=== PATIENT | female | born 1935 | race Caucasian/White ===

== ENCOUNTER 2020-07-10 00:14 | Inpatient (IN) | payer MEDICARE, OTHER ==
[~2020-07-10] VITALS: Ht 160 cm; Wt 47.2 kg
[~2020-07-10 00:14] MED LIST: AMOX TR-K CLV1 EAC4 PO; CEFUROXIME500 MG PO; CIPRO500 MG PO; MEGACE TAB 40 M40 MG PO; MULTIVITAMINS1 EAC1 PO; TYLENOL 8 HOUR650 MG PO; VITAMIN D33000 UNIT PO
[2020-07-10 01:33] LABS: HEMOGLOBIN 8.8 gm/dl (12.3-15.3); RED BLOOD COUNT 3.28 M/UL (4.00-5.10); WHITE BLOOD COUNT 16.2 K/UL (4.5-11.0)
[2020-07-10 01:42] LABS: BUN/CREATININE RATIO 19 (0-10)
[2020-07-10] MEDS ORDERED: OMEPRAZOLE20 MG PO (11:08)
[2020-07-11 06:06] LABS: HEMOGLOBIN 7.7 gm/dl (12.3-15.3)
[2020-07-11 06:11] LABS: RED BLOOD COUNT 2.9 M/UL (4.00-5.10); WHITE BLOOD COUNT 11.1 K/UL (4.5-11.0)
[2020-07-11 06:25] LABS: BUN/CREATININE RATIO 18 (0-10)
[2020-07-12 06:20] LABS: HEMOGLOBIN 7.2 gm/dl (12.3-15.3); RED BLOOD COUNT 2.75 M/UL (4.00-5.10)
[2020-07-12 07:01] LABS: BUN/CREATININE RATIO 30 (0-10)
[2020-07-12 15:01] LABS: HEMOGLOBIN 7.1 gm/dl (12.3-15.3)
[2020-07-13 06:10] LABS: HEMOGLOBIN 8.9 gm/dl (12.3-15.3); WHITE BLOOD COUNT 9.8 K/UL (4.5-11.0)
[2020-07-13 06:12] LABS: RED BLOOD COUNT 3.31 M/UL (4.00-5.10)
[2020-07-13 06:32] LABS: BUN/CREATININE RATIO 29 (0-10)
[2020-07-13] MEDS ORDERED: ATORVASTATIN CA20 MG PO ×2 (10:33→11:56)
[2020-07-13] MEDS ORDERED: ASPIRIN EC81 MG PO (10:33)
[2020-07-13] MEDS ORDERED: DONEPEZIL HCL5 MG PO (10:33)
[2020-07-13] MEDS ORDERED: MEGACE 400400 MG/10 PO (10:33)
[2020-07-13] MEDS ORDERED: THERAGRAN M TAB1 EA PO (10:33)
[2020-07-13] MEDS ORDERED: FERROUS GLUCON324 M1 PO (10:33)
[2020-07-13] MEDS ORDERED: PROTONIX 40 MG40 M1 PO (10:35)
== END 2020-07-13 13:41 | disposition home or self-care (01) | DRG 64 ==
LOC: ER1 00:14 → CDU 05:56 → M/S 10:51
PROVIDERS: Emergency Medicine; Internal Medicine; ADMIT Family Medicine
PROC: 30233N1 Transfusion of Nonautologous Red Blood Cells into Peripheral Vein, Percutaneous Approach (ICD-10-PCS; principal; 2020-07-12)
DX: I63.9 Cerebral infarction, unspecified (principal); G93.41 Metabolic encephalopathy; M19.90 Unspecified osteoarthritis, unspecified site; R00.0 Tachycardia, unspecified; D50.9 Iron deficiency anemia, unspecified; Z20.822 Contact with and (suspected) exposure to COVID-19; R62.7 Adult failure to thrive
CPT/HCPCS: ECHO; 0240U; 36415; 36430; 70450; 70496; 70498; 70551; 71045; 73030; 74230; 80048; 80053; 80061; 81001; 82550; 82553; 82607; 82746; 83540; 83550; 83605; 83690; 83735; 83874; 83880; 84439; 84443; 84484; 85014; 85018; 85025; 85027; 86850; 86900; 86901; 86920; 87040; 92610; 92611-GN; 93005; 93306; 96365; 96366; 96367; 96372; 97110-GP-CQ; 97162; 97166; 97530; 97530-GP-CQ; 99285; J1644; J1956; J7120; P9016; Q9965; Q9967

== ENCOUNTER 2020-08-05 18:06 | Inpatient (IN) | payer MEDICARE, OTHER ==
[~2020-08-05] VITALS: Ht 157.5 cm; Wt 45.4 kg
[~2020-08-05 18:06] MED LIST changes: +ASPIRIN EC81 MG PO; +ATORVASTATIN CA20 MG PO; +DONEPEZIL HCL5 MG PO; +FERROUS GLUCON324 M1 PO; +MEGACE 400400 MG/10 PO; +OMEPRAZOLE20 MG PO; +PROTONIX 40 MG40 M1 PO; +THERAGRAN M TAB1 EA PO
[2020-08-05 20:08] LABS: HEMOGLOBIN 9.3 gm/dl (12.3-15.3); RED BLOOD COUNT 3.5 M/UL (4.00-5.10); WHITE BLOOD COUNT 11.2 K/UL (4.5-11.0)
[2020-08-05 20:15] LABS: BUN/CREATININE RATIO 31 (0-10)
[2020-08-05] MEDS ORDERED: SULFAMETHOXAZO1 EACH PO (22:26)
[2020-08-05] MEDS ORDERED: ARICEPT5 MG PO (22:27)
[2020-08-05] MEDS ORDERED: ASPIRIN EC81 MG PO (22:31)
[2020-08-06 02:07] LABS: HEMOGLOBIN 8.5 gm/dl (12.3-15.3); RED BLOOD COUNT 3.31 M/UL (4.00-5.10); WHITE BLOOD COUNT 9.1 K/UL (4.5-11.0)
--- NOTE | 2020-08-06 03:32 | NUR ---
WAFFLE NIKUNJ PLACED ON BED, BILAT HEEL PROTECTORS PLACED ON FEET AND HEELS ELEVATED OFF NIKUNJ WITH PILLOW. PATIENT TURNED TO HER LEFT SIDE.
[2020-08-06 07:52] LABS: BUN/CREATININE RATIO 26 (0-10)
--- NOTE | 2020-08-06 20:10 | NUR ---
STRAWBERRY ENSURE GIVEN TO PATIENT, SHE DRANK MAYBE 40CC BEFORE REFUSING REST
[2020-08-07 07:00] LABS: HEMOGLOBIN 8.2 gm/dl (12.3-15.3); RED BLOOD COUNT 3.14 M/UL (4.00-5.10); WHITE BLOOD COUNT 9.5 K/UL (4.5-11.0)
[2020-08-07 07:29] LABS: BUN/CREATININE RATIO 19 (0-10)
[2020-08-08 05:51] LABS: RED BLOOD COUNT 3.06 M/UL (4.00-5.10); WHITE BLOOD COUNT 10.7 K/UL (4.5-11.0)
[2020-08-08 06:03] LABS: BUN/CREATININE RATIO 21 (0-10)
[2020-08-09 04:28] LABS: HEMOGLOBIN 8.5 gm/dl (12.3-15.3); RED BLOOD COUNT 3.29 M/UL (4.00-5.10); WHITE BLOOD COUNT 8.5 K/UL (4.5-11.0)
[2020-08-09 04:49] LABS: BUN/CREATININE RATIO 21 (0-10)
[2020-08-10 11:04] LABS: HEMOGLOBIN 8.7 gm/dl (12.3-15.3); RED BLOOD COUNT 3.3 M/UL (4.00-5.10); WHITE BLOOD COUNT 9.9 K/UL (4.5-11.0)
[2020-08-10 11:29] LABS: BUN/CREATININE RATIO 25 (0-10)
--- NOTE | 2020-08-11 08:56 | NUR ---
NOTIFIED OF TEMP. 101.6 AND HR OF 123
[2020-08-11 09:53] LABS: BUN/CREATININE RATIO 29 (0-10)
[2020-08-12 05:36] LABS: RED BLOOD COUNT 2.59 M/UL (4.00-5.10); WHITE BLOOD COUNT 4.8 K/UL (4.5-11.0)
[2020-08-12 05:37] LABS: HEMOGLOBIN 6.9 gm/dl (12.3-15.3)
[2020-08-12 05:58] LABS: BUN/CREATININE RATIO 30 (0-10)
--- NOTE | 2020-08-12 22:00 | NUR ---
Report received from Johnathan LUNA (ICU). Patient transferred to PCU at this time.
[2020-08-13 04:00] LABS: WHITE BLOOD COUNT 5.6 K/UL (4.5-11.0)
[2020-08-13 04:09] LABS: HEMOGLOBIN 9.9 gm/dl (12.3-15.3); RED BLOOD COUNT 3.66 M/UL (4.00-5.10)
[2020-08-13 04:47] LABS: BUN/CREATININE RATIO 24 (0-10)
[2020-08-14 04:07] LABS: HEMOGLOBIN 9.3 gm/dl (12.3-15.3); RED BLOOD COUNT 3.58 M/UL (4.00-5.10); WHITE BLOOD COUNT 7.5 K/UL (4.5-11.0)
[2020-08-14 04:22] LABS: BUN/CREATININE RATIO 30 (0-10)
[2020-08-15 03:45] LABS: HEMOGLOBIN 9.3 gm/dl (12.3-15.3); RED BLOOD COUNT 3.58 M/UL (4.00-5.10); WHITE BLOOD COUNT 9.2 K/UL (4.5-11.0)
[2020-08-15 03:50] LABS: BUN/CREATININE RATIO 35 (0-10)
[2020-08-17 02:21] LABS: HEMOGLOBIN 8.4 gm/dl (12.3-15.3); WHITE BLOOD COUNT 10.9 K/UL (4.5-11.0)
[2020-08-17 02:25] LABS: RED BLOOD COUNT 3.12 M/UL (4.00-5.10)
[2020-08-17 02:56] LABS: BUN/CREATININE RATIO 34 (0-10)
[2020-08-17 21:05] LABS: ACINETOBACTER BAUMANNII Not Detected (Negative); CANDIDA ALBICANS Not Detected (Negative); CANDIDA KRUSEI Not Detected (Negative); CANDIDA TROPICALIS Not Detected (Negative); ENTEROCOCCUS Not Detected (Negative); ESCHERICHIA COLI Not Detected (Negative); HAEMOPHILUS INFLUENZAE Not Detected (Negative); KLEBSIELLA OXYTOCA Not Detected (Negative); KLEBSIELLA PNEUMONIAE Not Detected (Negative); KPC-CARBAPENEM-RESISTANCE GENE Not Detected (Negative); PROTEUS Not Detected (Negative); PSEUDOMONAS AERUGINOSA Not Detected (Negative); SERRATIA MARCESANS Not Detected (Negative); STAPHYLOCOCCUS Not Detected (Negative); STAPHYLOCOCCUS AUREUS Not Detected (Negative); STREP AGALACTIAE (GROUP B) Not Detected (Negative); STREP PYOGENES (GROUP A) Not Detected (Negative); STREPTOCOCCUS Not Detected (Negative); mecA (METHICILLIN RESIST GENE Not Detected (Negative); vanA/B (VANCOMYCIN RESIST GENE Not Detected (Negative)
[2020-08-18 04:47] LABS: HEMOGLOBIN 8.5 gm/dl (12.3-15.3); RED BLOOD COUNT 3.17 M/UL (4.00-5.10); WHITE BLOOD COUNT 13.1 K/UL (4.5-11.0)
[2020-08-18 05:11] LABS: BUN/CREATININE RATIO 33 (0-10)
[2020-08-19 02:57] LABS: HEMOGLOBIN 7.7 gm/dl (12.3-15.3); WHITE BLOOD COUNT 10.9 K/UL (4.5-11.0)
[2020-08-19 02:58] LABS: RED BLOOD COUNT 2.84 M/UL (4.00-5.10)
[2020-08-19 08:35] LABS: BUN/CREATININE RATIO 39 (0-10)
[2020-08-20 03:58] LABS: HEMOGLOBIN 7.6 gm/dl (12.3-15.3); RED BLOOD COUNT 2.81 M/UL (4.00-5.10); WHITE BLOOD COUNT 9.4 K/UL (4.5-11.0)
[2020-08-20 04:18] LABS: BUN/CREATININE RATIO 43 (0-10)
[2020-08-21 03:53] LABS: HEMOGLOBIN 7.3 gm/dl (12.3-15.3); RED BLOOD COUNT 2.71 M/UL (4.00-5.10); WHITE BLOOD COUNT 11.4 K/UL (4.5-11.0)
[2020-08-21 04:11] LABS: BUN/CREATININE RATIO 39 (0-10)
--- NOTE | 2020-08-21 17:50 | NUR ---
BLADDER SCANNED PT AT 1630 AND NOTED 500ML RETAINED. NOTIFED MD OF EDEMA AND URINE RETENTION AND WAS ORDERED TO STOP FLUIDS AND ANCHOR A PALOMINO CATHETER.
[2020-08-22 04:53] LABS: HEMOGLOBIN 7.3 gm/dl (12.3-15.3); RED BLOOD COUNT 2.71 M/UL (4.00-5.10)
[2020-08-22 04:54] LABS: WHITE BLOOD COUNT 14.4 K/UL (4.5-11.0)
[2020-08-22 05:08] LABS: BUN/CREATININE RATIO 36 (0-10)
[2020-08-23 05:35] LABS: HEMOGLOBIN 7.6 gm/dl (12.3-15.3); RED BLOOD COUNT 2.83 M/UL (4.00-5.10); WHITE BLOOD COUNT 12.6 K/UL (4.5-11.0)
[2020-08-23 05:56] LABS: BUN/CREATININE RATIO 40 (0-10)
[2020-08-25 03:47] LABS: BUN/CREATININE RATIO 35 (0-10)
[2020-08-25] MEDS ORDERED: MIRALAX17 GM PO (09:24)
[2020-08-25] MEDS ORDERED: DULCOLAX STOOL100 MG PO (09:24)
--- NOTE | 2020-08-26 15:50 | NUR ---
reports given to home health admitting nurse.
--- NOTE | 2020-08-26 17:30 | NUR ---
provided extensive education and d/c teaching to daughter over the phone. daughter unable to come to the hospital r/t awaiting for the delivery of the bed, pump and supplements at home. daughter requested to do over the phone of the above education and teachings.
--- NOTE | 2020-08-26 17:58 | NUR ---
PATIENT HAS NOT VOIDED SINCE PALOMINO CATHETER D/C'D AND REPORTED TO DR. HANEY AND RECEIVED ORDER. REPORTED THE FOLLOWING TO DAUGHTER
== END 2020-08-26 18:40 | disposition home health service (06) | DRG 884 ==
LOC: ER1 18:06 → MED SURG 4 22:31 → PROG CARE 22:31 → CDU 22:31 → M/S 22:31 → MED SURG 4 23:57 → CCU 08-11 19:12 → PROG CARE 08-12 22:06 → M/S 08-17 18:20
PROVIDERS: Family Medicine; Internal Medicine; Internal Medicine Gastroenterology; Internal Medicine Infectious Disease; Physician Assistant Medical; ADMIT Internal Medicine
PROC: 8E0ZXY6 Isolation (ICD-10-PCS; 2020-08-05)
PROC: 3E02340 Introduction of Influenza Vaccine into Muscle, Percutaneous Approach (ICD-10-PCS; 2020-08-06)
PROC: 0DJ08ZZ Inspection of Upper Intestinal Tract, Via Natural or Artificial Opening Endoscopic (ICD-10-PCS; 2020-08-17)
PROC: 0DH63UZ Insertion of Feeding Device into Stomach, Percutaneous Approach (ICD-10-PCS; principal; 2020-08-17 14:00)
DX: F03.90 Unspecified dementia, unspecified severity, without behavioral disturbance, psychotic disturbance, mood disturbance, and anxiety (principal); T83.511A Infection and inflammatory reaction due to indwelling urethral catheter, initial encounter; N30.00 Acute cystitis without hematuria; A41.1 Sepsis due to other specified staphylococcus; G93.41 Metabolic encephalopathy; A41.89 Other specified sepsis; E44.0 Moderate protein-calorie malnutrition; D62 Acute posthemorrhagic anemia; Z68.1 Body mass index [BMI] 19.9 or less, adult; Z20.822 Contact with and (suspected) exposure to COVID-19; Z51.5 Encounter for palliative care; K21.9 Gastro-esophageal reflux disease without esophagitis; D50.9 Iron deficiency anemia, unspecified; R53.81 Other malaise; R62.7 Adult failure to thrive; B96.1 Klebsiella pneumoniae [K. pneumoniae] as the cause of diseases classified elsewhere; M19.90 Unspecified osteoarthritis, unspecified site; R33.9 Retention of urine, unspecified; K59.00 Constipation, unspecified; L89.152 Pressure ulcer of sacral region, stage 2; E21.3 Hyperparathyroidism, unspecified; Y83.8 Other surgical procedures as the cause of abnormal reaction of the patient, or of later complication, without mention of misadventure at the time of the procedure; E83.52 Hypercalcemia; E86.0 Dehydration; G51.0 Bell's palsy; E87.5 Hyperkalemia; R13.10 Dysphagia, unspecified; Z86.73 Personal history of transient ischemic attack (TIA), and cerebral infarction without residual deficits; Z88.1 Allergy status to other antibiotic agents; Z23 Encounter for immunization
CPT/HCPCS: 36415; 36430; 51701; 70450; 71045; 74018; 76536; 80048; 80053; 80202; 80307; 81001; 82330; 82550; 82553; 82607; 82746; 83540; 83550; 83605; 83735; 83880; 83970; 84100; 84132; 84439; 84443; 84484; 85018; 85025; 85027; 85610; 85652; 86140; 86850; 86900; 86901; 86920; 87040; 87077; 87086; 87150; 87186; 87635; 92610; 93005; 97110; 97162; 97164; 97167; 97168; 97530; 97530-GP-CQ; 99285; A6212; J1335; J1650; J1956; J2250; J3370; J3475; J3480; J3489; J7030; J7040; J7042; J7050; J7070; P9016; U0002